=== PATIENT | female | born 1935 | race Caucasian/White ===

== ENCOUNTER → 2017-02-25 | Outpatient (CLI) | payer OTHER ==
[~2017-02-25] MED LIST: ASCA500 PO; ATV5 PO; BIOTCAP2 PO; CLR10 PO; CRG40 PO; GLUCTAB7 PO; MULT-845 PO; NAPR1TAB9 PO; RANI300T2 PO
--- NOTE | 2017-02-25 14:35 | MAMMOGRAPHY REPORT ---
BILATERAL DIGITAL SCREENING MAMMOGRAM WITH CAD: 02/25/2017 CLINICAL HISTORY: Routine screening. Patient has no complaints. TECHNIQUE: Current study was also evaluated with a Computer Aided Detection (CAD) system. Bilateral CC and MLO views were obtained. COMPARISON: Comparison is made to exams dated: 02/24/2016 mammogram, 02/18/2015 mammogram, 4 mammogram, 02/15/2013 mammogram, 02/15/2012 mammogram, and 01/22/2011 mammogram - [facility]. BREAST COMPOSITION: The tissue of both breasts is heterogeneously dense, which may obscure small mas ses. FINDINGS: No suspicious masses, calcifications, or areas of architectural distortion are noted in ei ther breast. There has been no significant interval change compared to prior exams. IMPRESSION: ACR BI-RADS CATEGORY 1: NEGATIVE There is no mammographic evidence of malignancy. A 1 year screening mammogram is recommended. The pa tient will receive written notification of the results. Approximately 10% of breast cancers are not detected with mammography. A negative mammographic report should not delay biopsy if a clinically suggestive mass is present. Adele Diaz M.D. /:02/25/2017 13:34:59 Ice Guard Tester: Daiana TYSON)(Misa), [facility] letter sent: Normal 1/2 BI-RADS Code: ACR BI-RADS Category 1: Negative
== END | disposition home or self-care (01) ==
LOC: C.MAMM 12:53
PROVIDERS: ATTEND Family Medicine
DX: Z12.31 Encounter for screening mammogram for malignant neoplasm of breast (principal)

== ENCOUNTER 2020-02-12 12:13 | Inpatient (IN) ==
[2020-02-12 13:19] LABS: Basophils # (auto) 0.03 K/uL (0-0.2); Basophils % (auto) 0.3 %; Eosinophils # (auto) 0.13 K/uL (0-0.5); Eosinophils % (auto) 1.2 %; Hematocrit (blood only) 46.1 % (37-47); Hemoglobin 15.3 g/dL (12.0-16.0); Immature Granulocytes # (auto) 0.02 K/uL (0.00-0.02); Immature Granulocytes % (auto) 0.2 %; Lymphocytes # (auto) 2.57 K/uL (1.2-3.4); Lymphocytes % (auto) 24.5 %; Mean Corpuscular Hemoglobin 30.3 pg (25-34); Mean Corpuscular Hgb Conc 33.2 g/dL (32-36); Mean Corpuscular Volume 91.3 fL (80-100); Mean Platelet Volume 10.6 fL (7.4-10.4); Monocytes # (auto) 0.76 K/uL (0.11-0.59); Monocytes % (auto) 7.3 %; Neutrophils # (auto) 6.96 K/uL (1.4-6.5); Neutrophils % (auto) 66.5 %; Platelet Count 311 K/uL (130-400); RDW Coefficient of Variation 14.5 % (11.5-14.5); RDW Standard Deviation 48.7 fL (36.4-46.3); Red Blood Count 5.05 M/uL (4.2-5.4); White Blood Count 10.47 K/uL (4.8-10.8)
[2020-02-12 13:31] LABS: Partial Thromboplastin Time 29.1 Seconds (21.0-31.0); Prothrombin Time 10.5 Seconds (9.0-12.0)
[2020-02-12 13:34] LABS: Alanine Aminotransferase 16 U/L (12-78); Albumin Level 3.7 gm/dl (3.4-5.0); Aspartate Aminotransferase 14 U/L (15-37); BUN Creatinine Ratio 22.4 (10-20); Blood Urea Nitrogen 19 mg/dl (7-18); Calcium 9.7 mg/dl (8.5-10.1); Carbon Dioxide 30 mmol/L (21-32); Chloride 103 mmol/L (98-107); Creatinine Clr Calc Pharmacy 53.8 ml/min; Est GFR (African American) 72.4; Est GFR (Non-African American) 62.5; Glucose 111 mg/dl (70-99); Lipase 178 U/L (73-393); Sodium 134 mmol/L (136-145)
--- NOTE | 2020-02-12 13:36 | Electrocardiogram Report ---
Test Reason : Blood Pressure : / mmHG Vent. Rate : 040 BPM Atrial Rate : 040 BPM P-R Int : 178 ms QRS Dur : 086 ms QT Int : 440 ms P-R-T Axes : 065 -41 049 degrees QTc Int : 358 ms Marked sinus bradycardia Left axis deviation Poor R wave progression, consider anterior ND vs. lead placement vs. LVH Abnormal ECG When compared with ECG of 27-MAR-2010 07:05, [place] interval has decreased Vent. rate has decreased BY 31 BPM QT has shortened Confirmed by Tae Shah ([id number]) on 02/12/2020 1:35:55 PM Referred By: ER Confirmed By:Tae Shah
[2020-02-12 13:42] LABS: Alkaline Phosphatase 83 U/L (45-117); Bilirubin,Total 0.5 mg/dl (0.2-1); Creatine Kinase 32 U/L (26-192); Creatine Kinase MB < 1.0 ng/ml (0.5-3.6); Globulin 3.7 gm/dl (2.5-4.0); Total Protein 7.4 gm/dl (6.4-8.2); Troponin I < 0.015 ng/ml (0-0.045)
--- NOTE | 2020-02-12 13:44 | XRay Report ---
XR chest 1V portable HISTORY: Atypical Chest Pain COMPARISON: None. FINDINGS: The lungs are clear. Cardiac silhouette is normal in size. No pleural effusions. No pneumot horax. IMPRESSION: No acute process. ACT 112: Negative or not required by law. Electronically signed by: Greg Rodas M.D. 02/12/2020 1:43 PM
[2020-02-12] MEDS ORDERED: SODIUM CHLORIDE 0.9% 1000ML 1,000 ML IV ONE (13:53)
--- NOTE | 2020-02-12 14:08 | History & Physical Report ---
Date of Service February 12, 2020 Assessment & Plan (1) Heart palpitations: Has a long history of palpitations and has been on nadolol for many years. At one point upon review of records, she was on digoxin as well. Has not followed with cardiology in several years. Presents today with palpitations and found to have bradycardia with heart rates in the 30s to 40s. (2) Sinus bradycardia: With bradycardia in the 30s and 40s here which is sinus -Admit to [facility] with telemetry -Cardiology consult, Dr. Benson, discussed with him over the phone -EKG reviewed showing sinus bradycardia, exam reveals S3 -Checking 2D echo -Holding nadolol, will await cardiology recs regarding dc of medication/lowering dose vs needs for pacemaker insertion if persists to have junctional rhythm -Denies lightheadedness, dizziness, weakness -- will ask PT/OT to see for use of cane at baseline. -check TSH -Checking Lyme Titre, anaplasmosis, Ehrlichia (3) Anxiety: Stable Continue home lorazepam as needed although would recommend against this in the elderly (4) DVT prophylaxis: DVT ppx: - teds, scds CODE: DNR/DNI Dispo: From home, likely to remain in the hospital x 1-2 days History of Present Illness Primary Care Provider: Eric Noe This is an 84-year-old female with PMHx of gastritis, heart palpitations, anxiety who presents from her PCP office asked after feeling like her heart is not beating correctly, and that this has been going on for 3- days, and figured she better go be evaluated. She describes this as a flutter, irregular rhythm where occasionally heartbeat kicks really hard and then goes back into a regular rhythm. Pt is found to have a heart rate in the 30s to 40s and EKG reveals profound sinus bradycardia. She currently is on beta blockade with nadolol 40 mg daily, and follows with cardiology seeing Dr. Benson, but has not seen him for at least 3 years. She was previously told by their office that she would be able to be followed by her PCP. Patient has been on nadolol for the last 4 years, placed on this for palpitations. Listed in her allergy list is metoprolol, and reports having swelling of the lips and systemic hives/itching when attempting to take this medication on 2 different trials previously. Pt denies any acute complaints of weakness, dizziness, lightheadedness, fatigue, or loss of consciousness. Her granddaughter is present with her at bedside. Patient lives at home by herself, uses a cane at baseline for ambulatory assistance. Her is currently a permanent resident in [facility]. Allergies Allergy/AdvReac Type Severity Reaction Status Date / Time capsaicin Allergy Intermediate HIVES Verified 02/12/20 13:54 diclofenac Allergy Intermediate HIVES Verified 02/12/20 13:54 Diclopak Allergy Intermediate HIVES Verified 02/11/16 00:31 Penicillins Allergy Unknown HIVES/RASH Verified 02/12/20 13:54 Amoxicillin CAPS Allergy Unknown Uncoded 02/12/20 13:54 Clinoril Allergy Unknown Uncoded 02/12/20 13:54 Erythromycin Derivatives Allergy Unknown Uncoded 02/12/20 13:54 metoprolol Allergy Unknown Uncoded 02/12/20 13:54 Voltaren Allergy Unknown Uncoded 02/12/20 13:54 Home Medications Medication Instructions Recorded Confirmed Type nadolol 40 mg tablet 40 mg PO QAM tab 12/20/18 02/12/20 History ascorbate calcium (vitamin C) 500 500 mg PO QAM 05/24/19 02/12/20 History mg tablet multivitamin 1 cap PO QAM 05/24/19 02/12/20 History estradiol 4 gm PV 2XWK 02/12/20 02/12/20 History lorazepam [Ativan] 0.5 mg PO DAILY PRN 02/12/20 02/12/20 History Past Med/Surg History Medical History Angioedema Anxiety Gastritis Heart palpitations Surgical History H/O joint surgery S/P tonsillectomy [place] teeth extracted Family History Father CHF (congestive heart failure) Mother Heart disease Sister Atrial fibrillation Social History Smoking Status: Never smoker Hx Alcohol Use: No Hx Substance Use: No Preferred Language: Swazi Communication Ability: Effective Director Medicaid Required: No Beliefs That Will Affect Care: None Current Living Situation: Alone Other Information That Helps Us Care for You: No Feels Safe at Home: Yes Safety Concerns: Feels Safe At This Time Assistive Devices: Cane and Glasses Review of Systems Review of Systems: Constitutional: No fever, sweats or chills Eyes: No diplopia, no worsening or blurred vision ENT: normal hearing, no trouble swallowing Respiratory: No cough, sputum, dyspnea at rest or on exertion Cardiovascular: As per HPI Abdomen: No pain, nausea, vomiting, diarrhea or constipation Musculoskeletal: No joint pain, calf pain, swelling Neurologic: No weakness, numbness/tingling, or balance problems Psychiatric: No anxiety or depression Skin: No rash or itch Physical Exam Physical Exam: General: awake, alert, no apparent distress Head: Normocephalic, atraumatic ENT: PERRL, EOMI, no pharyngeal exudate, mucous membranes moist Chest: Clear to auscultation, on room air, no adventitious breath sounds Cardiac: Sinus sid, + S3, no murmur, no JVD, normal peripheral pulses, good capillary refill Abdominal: NABS x 4 quadrants, soft, nondistended, nontender to palpation, no rebound or guarding Extremities: Normal inspection, no peripheral edema or erythema, calfs nontender to palpation Psych: Normal mood and affect Neuro: AAO x 3, strength intact bilaterally and rated 5/5, no motor deficits, speech is clear, no peripheral sensory deficits Results & Data Results & Data ([facility]) Vital Signs (Past 12 Hours) Vital Signs Temp Pulse Pulse Resp BP BP Pulse Ox 02/12/20 13:38 50 L 16 150/52 H 97 02/12/20 12:50 97 02/12/20 12:38 36.5 C 70 18 157/70 H 99 Laboratory Results 02/12/20 02/12/20 02/12/20 Range/Units 15:05 15:05 13:05 WBC (4.8-10.8) K/uL RBC (4.2-5.4) M/uL Hgb (12.0-16.0) g/dL Hct (37-47) % MCV (80-100) fL MCH (25-34) pg MCHC (32-36) g/dL RDW Std Deviation (36.4-46.3) fL RDW Coeff of Arleen (11.5-14.5) % Plt Count (130-400) K/uL MPV (7.4-10.4) fL Immature Gran % (Auto) % Neut % (Auto) % Lymph % (Auto) % [place] % (Auto) % Eos % (Auto) % Baso % (Auto) % Neut # (Auto) (1.4-6.5) K/uL Lymph # (Auto) (1.2-3.4) K/uL [place] # (Auto) (0.11-0.59) K/uL Eos # (Auto) (0-0.5) K/uL Baso # (Auto) (0-0.2) K/uL Immature Gran # (Auto) (0.00-0.02) K/uL PT (9.0-12.0) Seconds INR (0.9-1.1) APTT (21.0-31.0) Seconds PTT Ratio Sodium (136-145) mmol/L Potassium (3.5-5.1) mmol/L Chloride (98-107) mmol/L Carbon Dioxide (21-32) mmol/L Anion Gap (3-11) BUN (7-18) mg/dl Creatinine (0.6-1.2) mg/dl Est Cr Clr Drug Dosing ml/min Est GFR ( Amer) Est GFR (Non-Af Amer) BUN/Creatinine Ratio (10-20) Glucose (70-99) mg/dl Calcium (8.5-10.1) mg/dl Total Bilirubin (0.2-1) mg/dl AST (15-37) U/L ALT (12-78) U/L Alkaline Phosphatase (45-117) U/L Total Creatine Kinase (26-192) U/L CK-MB (CK-2) (0.5-3.6) ng/ml CK/CKMB % Calc Troponin I (0-0.045) ng/ml Total Protein (6.4-8.2) gm/dl Albumin (3.4-5.0) gm/dl Globulin (2.5-4.0) gm/dl Albumin/Globulin Ratio (0.9-2) Lipase (73-393) U/L TSH (0.300-4.500) uIu/ml A. phagocytophilum DNA Pending Lyme Disease IgG Ab (Negative) Lyme Disease IgM Ab (Negative) [facility] E. chaffeensis IgG Ab Pending E. chaffeensis IgM Ab Pending E. chaffeensis Interp Pending E. chaffeensis Comment Pending SARS-CoV-2, RNA, NAAT NEGATIVE (NEGATIVE) 02/12/20 02/12/20 02/12/20 Range/Units 13:05 13:05 13:05 WBC (4.8-10.8) K/uL RBC (4.2-5.4) M/uL Hgb (12.0-16.0) g/dL Hct (37-47) % MCV (80-100) fL MCH (25-34) pg MCHC (32-36) g/dL RDW Std Deviation (36.4-46.3) fL RDW Coeff of Arleen (11.5-14.5) % Plt Count (130-400) K/uL MPV (7.4-10.4) fL Immature Gran % (Auto) % Neut % (Auto) % Lymph % (Auto) % [place] % (Auto) % Eos % (Auto) % Baso % (Auto) % Neut # (Auto) (1.4-6.5) K/uL Lymph # (Auto) (1.2-3.4) K/uL [place] # (Auto) (0.11-0.59) K/uL Eos # (Auto) (0-0.5) K/uL Baso # (Auto) (0-0.2) K/uL Immature Gran # (Auto) (0.00-0.02) K/uL PT (9.0-12.0) Seconds INR (0.9-1.1) APTT (21.0-31.0) Seconds PTT Ratio Sodium 134 L (136-145) mmol/L Potassium 4.0 (3.5-5.1) mmol/L Chloride 103 (98-107) mmol/L Carbon Dioxide 30 (21-32) mmol/L Anion Gap 1.0 L (3-11) BUN 19 H (7-18) mg/dl Creatinine 0.86 (0.6-1.2) mg/dl Est Cr Clr Drug Dosing 53.8 ml/min Est GFR ( Amer) 72.4 Est GFR (Non-Af Amer) 62.5 BUN/Creatinine Ratio 22.4 H (10-20) Glucose 111 H (70-99) mg/dl Calcium 9.7 (8.5-10.1) mg/dl Total Bilirubin 0.5 (0.2-1) mg/dl AST 14 L (15-37) U/L ALT 16 (12-78) U/L Alkaline Phosphatase 83 (45-117) U/L Total Creatine Kinase 32 (26-192) U/L CK-MB (CK-2) < 1.0 (0.5-3.6) ng/ml CK/CKMB % Calc TNP Troponin I < 0.015 (0-0.045) ng/ml Total Protein 7.4 (6.4-8.2) gm/dl Albumin 3.7 (3.4-5.0) gm/dl Globulin 3.7 (2.5-4.0) gm/dl Albumin/Globulin Ratio 1.0 (0.9-2) Lipase 178 (73-393) U/L TSH 2.230 (0.300-4.500) uIu/ml A. phagocytophilum DNA Lyme Disease IgG Ab Negative (Negative) Lyme Disease IgM Ab Negative (Negative) COVID-19 Eval Order E. chaffeensis IgG Ab E. chaffeensis IgM Ab E. chaffeensis Interp E. chaffeensis Comment SARS-CoV-2, RNA, NAAT (NEGATIVE) 02/12/20 02/12/20 Range/Units 13:05 13:05 WBC 10.47 (4.8-10.8) K/uL RBC 5.05 (4.2-5.4) M/uL Hgb 15.3 (12.0-16.0) g/dL Hct 46.1 (37-47) % MCV 91.3 (80-100) fL MCH 30.3 (25-34) pg MCHC 33.2 (32-36) g/dL RDW Std Deviation 48.7 H (36.4-46.3) fL RDW Coeff of Arleen 14.5 (11.5-14.5) % Plt Count 311 (130-400) K/uL MPV 10.6 H (7.4-10.4) fL Immature Gran % (Auto) 0.2 % Neut % (Auto) 66.5 % Lymph % (Auto) 24.5 % [place] % (Auto) 7.3 % Eos % (Auto) 1.2 % Baso % (Auto) 0.3 % Neut # (Auto) 6.96 H (1.4-6.5) K/uL Lymph # (Auto) 2.57 (1.2-3.4) K/uL [place] # (Auto) 0.76 H (0.11-0.59) K/uL Eos # (Auto) 0.13 (0-0.5) K/uL Baso # (Auto) 0.03 (0-0.2) K/uL Immature Gran # (Auto) 0.02 (0.00-0.02) K/uL PT 10.5 (9.0-12.0) Seconds INR 1.0 (0.9-1.1) APTT 29.1 (21.0-31.0) Seconds PTT Ratio 1.0 Sodium (136-145) mmol/L Potassium (3.5-5.1) mmol/L Chloride (98-107) mmol/L Carbon Dioxide (21-32) mmol/L Anion Gap (3-11) BUN (7-18) mg/dl Creatinine (0.6-1.2) mg/dl Est Cr Clr Drug Dosing ml/min Est GFR ( Amer) Est GFR (Non-Af Amer) BUN/Creatinine Ratio (10-20) Glucose (70-99) mg/dl Calcium (8.5-10.1) mg/dl Total Bilirubin (0.2-1) mg/dl AST (15-37) U/L ALT (12-78) U/L Alkaline Phosphatase (45-117) U/L Total Creatine Kinase (26-192) U/L CK-MB (CK-2) (0.5-3.6) ng/ml CK/CKMB % Calc Troponin I (0-0.045) ng/ml Total Protein (6.4-8.2) gm/dl Albumin (3.4-5.0) gm/dl Globulin (2.5-4.0) gm/dl Albumin/Globulin Ratio (0.9-2) Lipase (73-393) U/L TSH (0.300-4.500) uIu/ml A. phagocytophilum DNA Lyme Disease IgG Ab (Negative) Lyme Disease IgM Ab (Negative) COVID-19 Eval Order E. chaffeensis IgG Ab E. chaffeensis IgM Ab E. chaffeensis Interp E. chaffeensis Comment SARS-CoV-2, RNA, NAAT (NEGATIVE) Diagnostic Findings XR chest 1V portable HISTORY: Atypical Chest Pain COMPARISON: None. FINDINGS: The lungs are clear. Cardiac silhouette is normal in size. No pleural effusions. No pneumothorax. IMPRESSION: No acute process. ACT 112: Negative or not required by law. ECG Additional Comments: 12-FEB-2020 12:46:24 [facility]-EDSTAT ROUTINE RETRIEVAL Marked sinus bradycardia Left axis deviation Poor R wave progression, consider anterior ME vs. lead placement vs. LVH Abnormal ECG When compared with ECG of 27-MAR-2010 07:05, [place] interval has decreased Vent. rate has decreased BY 31 BPM QT has shortened Confirmed by Tae Shah ([id number]) on 02/12/2020 1:35:55 PM 25mm/s 10mm/mV 150Hz 9.0.9 12SL 241 JENNY: 3 Referred by: ER Confirmed By: Tae Shah Vent. rate 40 BPM MT interval 178 ms QRS duration 86 ms QT/QTc 440/358 ms P-R-T axes 65 -41 49 Code Status & VTE Plan Code Status DNR/DNI-discussed with the patient Supervising Physician Co-Signing Physician Notes PA Supervision Note: I personally saw and examined the patient. I verified all keys points and agree with MUKESH Pappas with the following exceptions and/or additions: Patient presents with palpitations x3 days and was found to have sinus bradycardia with rates in the 30s and 40s. She has not had any syncope or presyncope. No chest pain or shortness of breath. No other concerning symptoms. She has been taking nadolol for many years. History and ROS reviewed as above Vitals reviewed Gen: AAOx3, NAD HEENT: Anicteric sclerae, EOMI CV: Regular rhythm, bradycardia, no mgr nl S1S2, heart rate 39 when I first saw her at rest but after sitting up to listen to her lungs, her heart rate appropriately went up to the 70s with minimal exertion. Pulm: CTAB no wcr Abd: +BS soft NT ND no masses or hernias Ext: No edema, 2+ DP pulses Skin: No rashes, warm/dry Neuro: Full strength throughout Laboratory values reviewed ECG reviewed and shows sinus bradycardia, no ischemic changes Chest x-ray negative 84-year-old female here with symptomatic sinus bradycardia with palpitations, but no syncope. Hold beta-thalia and observe on telemetry It is reassuring that her heart rate appropriately came up to the 70s with movement even in the bed when moving from lying to sitting position. Will need to ambulate her tomorrow to see what her heart rates do when she exercises. Cardiology consultation requested Check echocardiogram I do not think that she has any sort of tickborne illness that would cause this PG Care Time/CCT Total # of Minutes Spent Total Time Spent with Patient: Total time spent is greater than 50% in coordination of care (as documented) at patient's floor/unit and/or counseling patient: Coding Level of Care Code 04197 Initial Inpt Care Lvl 3 Diagnoses Heart palpitations R00.2 Sinus bradycardia R00.1 Anxiety F41.9 DVT prophylaxis Z29.9
--- NOTE | 2020-02-12 14:20 | Emergency Department Note ---
History of Present Illness General Chief complaint: Arrhythmia/Palpitations Stated complaint: arrhythmia Time Seen by Provider: 02/12/20 12:49 Source: patient, family (daughter), RN notes reviewed and old records reviewed Mode of arrival: ambulatory Limitations: no limitations History of Present Illness Provider complaint: palpitations Onset (ago): day(s) 3 Location: chest Radiation: non-radiation Associated symptoms: + denies other symptoms; no confusion, no chest pain, no headaches, no nausea/vomiting and no shortness of breath Treatments prior to arrival: none This is an 84-year-old female who presents emergency department complaining of palpitations which have been ongoing for the past 3 days. Patient reports she feels her heart is not beating right. She went to her primary care physician's office today where they found her heart rate to be in the 30s and she was sent to the emergency department. Patient denies any chest pain or weakness. She denies any fevers or chills or recent exposure to the virus. Home Medications Medication Instructions Recorded Confirmed Type nadolol 40 mg tablet 40 mg PO QAM tab 12/20/18 02/12/20 History ascorbate calcium (vitamin C) 500 500 mg PO QAM 05/24/19 02/12/20 History mg tablet multivitamin 1 cap PO QAM 05/24/19 02/12/20 History estradiol 4 gm PV 2XWK 02/12/20 02/12/20 History lorazepam [Ativan] 0.5 mg PO DAILY PRN 02/12/20 02/12/20 History Allergies Allergy/AdvReac Type Severity Reaction Status Date / Time capsaicin Allergy Intermediate HIVES Verified 02/12/20 13:54 diclofenac Allergy Intermediate HIVES Verified 02/12/20 13:54 Diclopak Allergy Intermediate HIVES Verified 02/11/16 00:31 Penicillins Allergy Unknown HIVES/RASH Verified 02/12/20 13:54 Amoxicillin CAPS Allergy Unknown Uncoded 02/12/20 13:54 Clinoril Allergy Unknown Uncoded 02/12/20 13:54 Erythromycin Derivatives Allergy Unknown Uncoded 02/12/20 13:54 metoprolol Allergy Unknown Uncoded 02/12/20 13:54 Voltaren Allergy Unknown Uncoded 02/12/20 13:54 Past Med/Surg History Surgical History H/O joint surgery S/P tonsillectomy [place] teeth extracted Family History (Updated 02/12/20 @ 15:02 by Jazmin Pappas PA-C) Father CHF (congestive heart failure) Mother Heart disease Sister Atrial fibrillation Social History Smoking Status: Never smoker Preferred Language: Nepali Feels Safe at Home: Yes Review of Systems A total of 10 systems reviewed and were otherwise negative Physical Exam Vital Signs Vital Signs - 24 hr 02/12/20 12:38 02/12/20 12:50 02/12/20 13:31 Temperature 36.5 C Temperature Source Oral Pulse Rate 70 63 Pulse Rate [Apical] Pulse Rate from SpO2 Sensor 61 Pulse Rhythm [Apical] Respiratory Rate 18 15 Respiratory Effort / Characteristics Non-Labored Spontaneous Respiratory Depth Normal Respiratory Pattern Regular Blood Pressure 157/70 H 150/52 H Blood Pressure [Left Arm] Blood Pressure Mean 99 64 Blood Pressure Mean [Left Arm] Pulse Oximetry 99 97 97 Oxygen Delivery Method Room Air Room Air Sepsis Recent Fever Within 48 Hours No Sepsis New/Unexplained Change in Mental Status No Sepsis Action Taken by Nursing No Action Required 02/12/20 13:38 02/12/20 14:00 02/12/20 14:01 Temperature Temperature Source Pulse Rate 38 L 62 Pulse Rate [Apical] 50 L Pulse Rate from SpO2 Sensor 38 L 58 L Pulse Rhythm [Apical] Regular Respiratory Rate 16 16 20 Respiratory Effort / Characteristics Respiratory Depth Normal Respiratory Pattern Blood Pressure 132/57 L Blood Pressure [Left Arm] 150/52 H Blood Pressure Mean 94 Blood Pressure Mean [Left Arm] 84 Pulse Oximetry 97 96 98 Oxygen Delivery Method Room Air Sepsis Recent Fever Within 48 Hours Sepsis New/Unexplained Change in Mental Status Sepsis Action Taken by Nursing 02/12/20 14:30 02/12/20 14:31 02/12/20 15:00 Temperature Temperature Source Pulse Rate 60 43 L 55 L Pulse Rate [Apical] Pulse Rate from SpO2 Sensor 53 L 41 L 57 L Pulse Rhythm [Apical] Respiratory Rate 16 18 14 Respiratory Effort / Characteristics Respiratory Depth Respiratory Pattern Blood Pressure 153/53 H 153/64 H Blood Pressure [Left Arm] Blood Pressure Mean 75 87 Blood Pressure Mean [Left Arm] Pulse Oximetry 98 100 97 Oxygen Delivery Method Sepsis Recent Fever Within 48 Hours Sepsis New/Unexplained Change in Mental Status Sepsis Action Taken by Nursing VITAL SIGNS - Vital signs and nursing notes were reviewed. GENERAL - 84-year-old female appearing stated age who is in no acute distress. Communicates well with provider and answers questions appropriately. SKIN - Without rashes. HEAD - NC/AT. EYES - PERRL with EOMI bilaterally. Sclera anicteric. Palpebral conjunctiva pink and moist with no injection noted. EARS - No deformities of external structures noted on gross examination bilaterally. No pain elicited with palpation of the tragus bilaterally. External auditory canals without discharge or otorrhea. Tympanic membranes pearly dela cruz without retraction or bulging. No fluid or purulent material visualized behind the TM. Handle of malleus, umbo, cone of light, pars tensa/flaccid all easily visualized. NOSE - Midline and without cyanosis. No epistaxis or purulent drainage noted. Septum midline without deviation or septal hematoma noted. MOUTH/OROPHARYNX - Without perioral cyanosis. Buccal mucosa pink and moist and without leukoplakia. Tongue midline with equal elevation of palate bilaterally. No tonsillar hypertrophy, erythema, or exudates noted. dentition noted. NECK - Neck with FROM. Supple to palpation. lymphadenopathy noted. No nuchal rigidity. LUNGS - Chest wall symmetric without accessory muscle use, intercostals retractions, or central cyanosis. Normal vesicular breath sounds CTA B/L. No wheezes, rales, or rhonchi appreciated. CARDIAC - RRR with S1/S2. No murmur, rubs, or gallops appreciated. ABDOMEN - Abdominal contour without pulsations or visible masses. BS normoactive all four quadrants. No tenderness, palpable masses, hepa tosplenomegaly, or ascites noted. EXTREMITIES - No clubbing or peripheral cyanosis. No pretibial edema present. +3/5 radial, posterior tibial, and dorsalis pedis pulses palpated throughout. +5/5 strength noted in UE/LE bilaterally. NEUROLOGIC - Cranial nerves II through XII grossly intact. Sensory intact to light touch throughout. Patellar reflexes +2/4. PSYCH - A&Ox3 and cooperates fully with examiner. Pt is very pleasant and interacts well with examiner. Course Administered Medications Discontinued Medications Sodium Chloride (Nss 1000ml) 1,000 mls @ 999 mls/hr IV .Q1H1M ONE Stop: 02/12/20 14:53 Last Infusion: 02/12/20 16:07 Dose: 0 mls/hr Documented by: [id number] Admin: 02/12/20 15:06 Dose: 999 mls/hr Documented by: [id number] Medical Decision Making Differential Diagnosis Cardiac ischemia, aortic dissection, pulmonary embolism, pneumothorax, pneumonia, pericarditis, myocarditis, esophageal rupture, GERD, cholecystitis, pancreatitis, musculoskeletal, as well as other pathologies. Medical Records Attestation: I reviewed the patient's medical records. Home Medications Current Medication List: was personally reviewed by me Laboratory Data Attestation: I reviewed the patient's lab results. Result diagrams: 02/12/20 13:05 02/12/20 13:05 Lab Results 02/12/20 02/12/20 02/12/20 Range/Units 13:05 13:05 13:05 WBC 10.47 (4.8-10.8) K/uL RBC 5.05 (4.2-5.4) M/uL Hgb 15.3 (12.0-16.0) g/dL Hct 46.1 (37-47) % MCV 91.3 (80-100) fL MCH 30.3 (25-34) pg MCHC 33.2 (32-36) g/dL RDW Std Deviation 48.7 H (36.4-46.3) fL RDW Coeff of Arleen 14.5 (11.5-14.5) % Plt Count 311 (130-400) K/uL MPV 10.6 H (7.4-10.4) fL Immature Gran % (Auto) 0.2 % Neut % (Auto) 66.5 % Lymph % (Auto) 24.5 % Cedar % (Auto) 7.3 % Eos % (Auto) 1.2 % Baso % (Auto) 0.3 % Neut # (Auto) 6.96 H (1.4-6.5) K/uL Lymph # (Auto) 2.57 (1.2-3.4) K/uL Cedar # (Auto) 0.76 H (0.11-0.59) K/uL Eos # (Auto) 0.13 (0-0.5) K/uL Baso # (Auto) 0.03 (0-0.2) K/uL Immature Gran # (Auto) 0.02 (0.00-0.02) K/uL PT 10.5 (9.0-12.0) Seconds INR 1.0 (0.9-1.1) APTT 29.1 (21.0-31.0) Seconds PTT Ratio 1.0 Sodium 134 L (136-145) mmol/L Potassium 4.0 (3.5-5.1) mmol/L Chloride 103 (98-107) mmol/L Carbon Dioxide 30 (21-32) mmol/L Anion Gap 1.0 L (3-11) BUN 19 H (7-18) mg/dl Creatinine 0.86 (0.6-1.2) mg/dl Est Cr Clr Drug Dosing 53.8 ml/min Est GFR ( Amer) 72.4 Est GFR (Non-Af Amer) 62.5 BUN/Creatinine Ratio 22.4 H (10-20) Glucose 111 H (70-99) mg/dl Calcium 9.7 (8.5-10.1) mg/dl Total Bilirubin 0.5 (0.2-1) mg/dl AST 14 L (15-37) U/L ALT 16 (12-78) U/L Alkaline Phosphatase 83 (45-117) U/L Total Creatine Kinase 32 (26-192) U/L CK-MB (CK-2) < 1.0 (0.5-3.6) ng/ml CK/CKMB % Calc TNP Troponin I < 0.015 (0-0.045) ng/ml Total Protein 7.4 (6.4-8.2) gm/dl Albumin 3.7 (3.4-5.0) gm/dl Globulin 3.7 (2.5-4.0) gm/dl Albumin/Globulin Ratio 1.0 (0.9-2) Lipase 178 (73-393) U/L TSH (0.300-4.500) uIu/ml Lyme Disease IgG Ab (Negative) Lyme Disease IgM Ab (Negative) 02/12/20 02/12/20 Range/Units 13:05 13:05 WBC (4.8-10.8) K/uL RBC (4.2-5.4) M/uL Hgb (12.0-16.0) g/dL Hct (37-47) % MCV (80-100) fL MCH (25-34) pg MCHC (32-36) g/dL RDW Std Deviation (36.4-46.3) fL RDW Coeff of Arleen (11.5-14.5) % Plt Count (130-400) K/uL MPV (7.4-10.4) fL Immature Gran % (Auto) % Neut % (Auto) % Lymph % (Auto) % Cedar % (Auto) % Eos % (Auto) % Baso % (Auto) % Neut # (Auto) (1.4-6.5) K/uL Lymph # (Auto) (1.2-3.4) K/uL Cedar # (Auto) (0.11-0.59) K/uL Eos # (Auto) (0-0.5) K/uL Baso # (Auto) (0-0.2) K/uL Immature Gran # (Auto) (0.00-0.02) K/uL PT (9.0-12.0) Seconds INR (0.9-1.1) APTT (21.0-31.0) Seconds PTT Ratio Sodium (136-145) mmol/L Potassium (3.5-5.1) mmol/L Chloride (98-107) mmol/L Carbon Dioxide (21-32) mmol/L Anion Gap (3-11) BUN (7-18) mg/dl Creatinine (0.6-1.2) mg/dl Est Cr Clr Drug Dosing ml/min Est GFR ( Amer) Est GFR (Non-Af Amer) BUN/Creatinine Ratio (10-20) Glucose (70-99) mg/dl Calcium (8.5-10.1) mg/dl Total Bilirubin (0.2-1) mg/dl AST (15-37) U/L ALT (12-78) U/L Alkaline Phosphatase (45-117) U/L Total Creatine Kinase (26-192) U/L CK-MB (CK-2) (0.5-3.6) ng/ml CK/CKMB % Calc Troponin I (0-0.045) ng/ml Total Protein (6.4-8.2) gm/dl Albumin (3.4-5.0) gm/dl Globulin (2.5-4.0) gm/dl Albumin/Globulin Ratio (0.9-2) Lipase (73-393) U/L TSH 2.230 (0.300-4.500) uIu/ml Lyme Disease IgG Ab Negative (Negative) Lyme Disease IgM Ab Negative (Negative) Imaging Data Radiologist's Impression: [place] [phone] XRay Report Patient: RADHA SPARKS Admit Date: 02/12/20 MR#: [id number] Address1: [address] [place] [address] Acct ID:[id number] Address2: Date: 1935 [facility] Zip: [place] [address] Age: 84 Location: ED Sex: F Room/Bed: Att Phy: Diagnosis: arrhythmia Susana Phy: Eric Noe MD Service Date: 02/12/20 Fam Phy: Interpreting Phy: Greg Rodas MD Admit Phy: Ordering Phy: Scot Cao MD cc: ~ XR chest 1V portable HISTORY: Atypical Chest Pain COMPARISON: None. FINDINGS: The lungs are clear. Cardiac silhouette is normal in size. No pleural effusions. No pneumothorax. IMPRESSION: No acute process. ACT 112: Negative or not required by law. Electronically signed by: Greg Rodas M.D. 02/12/2020 1:43 PM Dictated: 02/12/20 1341 Transcribed: 02/12/20 1341 ECG Data Attestation: I personally reviewed and interpreted this ECG as follows: Indication: + bradycardia Rate (beats per minute): 40 Rhythm: + sinus bradycardia ECG Intervals/blocks: + Normal QT-c (358) ECG [place]: + Left axis deviation ECG ST segments: no ST depression and no ST elevation Comparison ECG Date: from (03/27/2010) Change: the following changes noted (Vent rate has decreased by 31) MDM Narrative Patient was seen and evaluated as above in room A12. Review was performed of nursing notes and vital signs. I did review pertinent previous visits and patient history. After obtaining a thorough history and physical examination the above work up was performed. This is an 84-year-old female who presents emergency department over complaints of palpitations and feels like her heart is not beating right. On arrival to the emergency department the patient has no complaints she denies any shortness of breath or chest pain or weakness. I did discuss the case with the patient's pelts skinner Dr. Tolentino who asked that the patient be admitted to the hospitalist service. Patient is in agreement with the treatment plan. An order was placed for continuous cardiac monitoring. The monitor shows a rate of 41 with Sinus Eloy rhythm. I attest that I have personally reviewed the patient medication list. The patient was evaluated during the global COVID-19 pandemic, and that diagnosis was suspected/considered upon their initial presentation. Their eval uation, treatment and testing was consistent with current guidelines for patients who present with complaints or symptoms that may be related to COVID- 19. Impression & Plan Heart palpitations, Sinus bradycardia Discharge Plan Visit Data Chief Complaint: Arrhythmia/Palpitations Stated Complaint: arrhythmia ED Provider: Scot Cao Discharge Problem: Heart palpitations, Sinus bradycardia Patient Disposition: Admitted As Inpatient Discharge Instructions Interventions: ED Discharge Assessment Last Done: 02/12/20 17:58
[2020-02-12 15:24] LABS: Lyme Ab IgM w/WB Rflx Negative (Negative)
[2020-02-12 15:28] LABS: Lyme Ab IgG w/WB Rflx Negative (Negative)
[2020-02-12] MEDS ORDERED: ONDANSETRON INJ 2 MG/ML 2 ML VIAL IV PRN (17:28)
[2020-02-13 06:20] LABS: Hematocrit (blood only) 39.3 % (37-47); Hemoglobin 13.1 g/dL (12.0-16.0); Mean Corpuscular Hemoglobin 30.3 pg (25-34); Mean Corpuscular Hgb Conc 33.3 g/dL (32-36); Mean Corpuscular Volume 90.8 fL (80-100); Mean Platelet Volume 10.4 fL (7.4-10.4); Platelet Count 247 K/uL (130-400); RDW Coefficient of Variation 14.4 % (11.5-14.5); Red Blood Count 4.33 M/uL (4.2-5.4); White Blood Count 7.12 K/uL (4.8-10.8)
[2020-02-13 06:45] LABS: Albumin Level 2.8 gm/dl (3.4-5.0); BUN Creatinine Ratio 21.2 (10-20); Creatinine Clr Calc Pharmacy 55.3 ml/min; Est GFR (African American) 75.6; Est GFR (Non-African American) 65.2; Magnesium 2.1 mg/dl (1.8-2.4); Potassium 3.8 mmol/L (3.5-5.1)
[2020-02-13 06:52] LABS: Bilirubin,Total 0.7 mg/dl (0.2-1); Globulin 2.9 gm/dl (2.5-4.0); Phosphorus 3.2 mg/dl (2.5-4.9); Total Protein 5.7 gm/dl (6.4-8.2)
[2020-02-13 07:38] LABS: Estimated Average Glucose 100 mg/dl; Hemoglobin A1C 5.1 % (4.5-5.6)
[2020-02-13] MEDS: MULTIVITAMIN TAB PO SCH (07:52)
[2020-02-13] MEDS: ASCORBIC ACID 500 MG TAB PO SCH (07:52)
--- NOTE | 2020-02-13 08:57 | Cardiology Consultation ---
Date of Consultation Note from the emergency room suggested that she had lightheadedness and weakness and slow heart rates in the 30s in the office as an outpatient. She notes that her palpitations have been worse over the last month. She describes 2 different kinds of palpitations one is a flip-flop which sounds like her PVCs the other are a more extended palpitation. In reviewing the monitor here looks like she is having bursts of PAT associated with frequent PACs as well. She denies any chest pain chest pressure chest heaviness she has any presyncope or syncope. She denies any falls. She lives all on 1 floor walks with a cane. Her granddaughter is doing the grocery shopping for her she drives to the mailbox. She notes overall she has not been doing as much activity. She denies any lower extremity edema symptoms or claudication she denies any orthopnea or heart failure symptoms. The rest of a complete her systems otherwise negative February 13, 2020 History of Present Illness Attending Physician: Tico Hernandez MD Allergies Allergy/AdvReac Type Severity Reaction Status Date / Time capsaicin Allergy Intermediate HIVES Verified 02/12/20 13:54 diclofenac Allergy Intermediate HIVES Verified 02/12/20 13:54 Diclopak Allergy Intermediate HIVES Verified 02/11/16 00:31 Penicillins Allergy Unknown HIVES/RASH Verified 02/12/20 13:54 Amoxicillin CAPS Allergy Unknown Uncoded 02/12/20 13:54 Clinoril Allergy Unknown Uncoded 02/12/20 13:54 Erythromycin Derivatives Allergy Unknown Uncoded 02/12/20 13:54 metoprolol Allergy Unknown Uncoded 02/12/20 13:54 Voltaren Allergy Unknown Uncoded 02/12/20 13:54 Home Medications Medication Instructions Recorded Confirmed Type nadolol 40 mg tablet 40 mg PO QAM tab 12/20/18 02/12/20 History ascorbate calcium (vitamin C) 500 500 mg PO QAM 05/24/19 02/12/20 History mg tablet multivitamin 1 cap PO QAM 05/24/19 02/12/20 History estradiol 4 gm PV 2XWK 02/12/20 02/12/20 History lorazepam [Ativan] 0.5 mg PO DAILY PRN 02/12/20 02/12/20 History Patient History Medical History Angioedema Anxiety Gastritis Heart palpitations Surgical History H/O joint surgery S/P tonsillectomy [place] teeth extracted Family History Father CHF (congestive heart failure) Mother Heart disease Sister Atrial fibrillation Social History Smoking Status: Never smoker Hx Alcohol Use: No Hx Substance Use: No Preferred Language: Yoruba Communication Ability: Effective Miller Helper Required: No Beliefs That Will Affect Care: None Current Living Situation: Alone Other Information That Helps Us Care for You: No Feels Safe at Home: Yes Safety Concerns: Feels Safe At This Time Assistive Devices: Cane and Glasses Results & Data ([facility]) Vital Signs (Past 12 Hours) Vital Signs Temp Pulse Pulse Resp BP Pulse Ox 02/13/20 08:00 36.7 C 61 18 153/79 H 94 02/13/20 07:26 69 02/13/20 04:00 36.6 C 55 L 18 103/61 98 02/13/20 00:01 61 02/12/20 23:44 36.8 C 64 18 142/66 H 98 she is awake alert oriented x3 she is in no acute distress she looks younger than her stated age HEENT: 2+ carotid upstrokes. No evidence of carotid bruits sclerae anicteric hearing is normal Lungs: Clear auscultation bilaterally no rales rhonchi or wheezing Heart: Regular rate and rhythm she has frequent ectopy and had symptomatic PVCs when listening to her, there were no appreciable murmurs or rubs Abdomen: Soft nontender distended positive bowel sounds Extremities: No clubbing cyanosis or edema Psychiatric affect appeared appropriate Neurologic she is awake alert and oriented x3 and moves all extremities and answers questions appropriately Impressions: 1. Marked sinus bradycardia and possible junctional rhythm secondary to nadolol 2. 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 Hypertension 4. GERD 5. Anxiety 6. Intolerant of metoprolol due to angioedema and hives I did review her monitor this morning. She does have frequent PVCs she also has frequent PACs and short runs of PAT. She likely needs AV antonio blockers long- term to suppress her arrhythmias. Unfortunately with even low doses of nadolol she is having symptomatic bradycardia and her frequency of her ectopy seems to have increased. If we do not put a pacemaker in now she likely will declare herself in the near future with ongoing bradycardia or worsening palpitations that would require the need for AV antonio blockers. Her carotid upstroke is brisk suggesting her LV function is preserved. Her TSH is normal. Her Lyme titers are negative. I discussed with her the risks and benefits of pacemaker implantation she is agreeable to proceed if the EP service feels the same. We also discussed limitations afterwards which should not impact her as well as the need for chronic monitoring of her device. I will discuss her case with Dr. Kolb. She did have breakfast this morning. We can arrange for either her pacemaker this afternoon or tomorrow morning depending on Dr. Kolb schedule.
[2020-02-13] MEDS: LORazepam 0.5 MG TAB PO PRN (10:57)
--- NOTE | 2020-02-13 13:01 | XCELERA ---
[id number]
--- NOTE | 2020-02-13 15:40 | Hospitalist Progress Note ---
Date of Service February 13, 2020 Assessment & Plan (1) Heart palpitations: Has a long history of palpitations and has been on nadolol for many years. At one point upon review of records, she was on digoxin as well. Has not followed with cardiology in several years. Presents today with palpitations and found to have bradycardia with heart rates in the 30s to 40s. - Due to palpitations, she needs to be on beta-thalia per cardiology. But due to bradycardia, she may need a pacemaker. Discussed with Dr. Benson who will consult Dr. Kolb. (2) Sinus bradycardia: With bradycardia in the 30s and 40s here which is sinus -Ad[facility] to [facility] with telemetry -Cardiology consult, Dr. Benson, discussed with him over the phone -EKG reviewed showing sinus bradycardia, exam reveals S3 -Checking 2D echo -Holding nadolol, will await cardiology recs regarding dc of medication/lowering dose vs needs for pacemaker insertion if persists to have junctional rhythm -Denies lightheadedness, dizziness, weakness -- will ask PT/OT to see for use of cane at baseline. -check TSH -Checking Lyme Titre, anaplasmosis, Ehrlichia -> Lyme negative. (3) Anxiety: Stable Continue home lorazepam as needed although would recommend against this in the elderly (4) DVT prophylaxis: DVT ppx: - teds, scds CODE: DNR/DNI Dispo: From home, likely to remain in the hospital x 1-2 days Admission and Anticipated Discharge Date Admission Date: February 12, 2020 Subjective No major issues today. Reports no fevers/chills, chest pain, shortness of breath, abdominal pain, nausea, or vomiting. No further lightheadedness or dizziness. Physical Exam Constitutional: WD/WN, vitals as above Eyes: EOM intact bilaterally; no conjunctival abnormality ENMT: external ear and nose normal, oropharynx normal Neck: trachea midline, no thyromegaly normal visual inspection Respiratory: normal respiratory effort, lungs clear to auscultation no respiratory distress Cardiovascular: RRR, no murmur, no edema Gastrointestinal (Abdomen): Inspection/Auscultation: abdomen normal to inspection; abdomen not distended Musculoskeletal: no cyanosis or clubbing, extremities motor strength 5/5 Skin: no rashes, warm and dry Neurologic: moves all extremities and awake Psychiatric: Orientation: alert, oriented to person and cooperative Results & Data Results & Data ([facility]) Vital Signs (Past 12 Hours) Vital Signs Temp Pulse Pulse Resp BP Pulse Ox 02/13/20 15:30 71 02/13/20 11:53 36.8 C 62 18 132/74 94 02/13/20 08:00 36.7 C 61 18 153/79 H 94 02/13/20 07:26 69 02/13/20 04:00 36.6 C 55 L 18 103/61 98 PG Care Time/CCT Total # of Minutes Spent Total Time Spent with Patient: Total time spent is greater than 50% in coordination of care (as documented) at patient's floor/unit and/or counseling patient: Coding Level of Care Code 51847 Subseq Hosp Care Lvl 2 Diagnoses Heart palpitations R00.2 Sinus bradycardia R00.1 Anxiety F41.9 DVT prophylaxis Z29.9
[2020-02-13] MEDS: ACETAMINOPHEN 325 MG TAB PO PRN (16:58)
[2020-02-14 06:18] LABS: Hematocrit (blood only) 39.6 % (37-47); Hemoglobin 13.2 g/dL (12.0-16.0); Mean Corpuscular Hemoglobin 30.2 pg (25-34); Mean Corpuscular Hgb Conc 33.3 g/dL (32-36); Mean Corpuscular Volume 90.6 fL (80-100); Mean Platelet Volume 10.6 fL (7.4-10.4); Platelet Count 247 K/uL (130-400); RDW Coefficient of Variation 14.5 % (11.5-14.5); RDW Standard Deviation 47.6 fL (36.4-46.3); Red Blood Count 4.37 M/uL (4.2-5.4); White Blood Count 7.08 K/uL (4.8-10.8)
[2020-02-14] MEDS ORDERED: CLINDAMYCIN PHOS 300 MG/2 ML VIAL ONE (06:32)
[2020-02-14 06:41] LABS: Albumin Level 2.9 gm/dl (3.4-5.0); BUN Creatinine Ratio 25.4 (10-20); Creatinine Clr Calc Pharmacy 54.9 ml/min; Est GFR (African American) 74.5; Est GFR (Non-African American) 64.3; Potassium 4.2 mmol/L (3.5-5.1)
[2020-02-14 06:44] LABS: Bilirubin,Total 0.5 mg/dl (0.2-1); Globulin 2.9 gm/dl (2.5-4.0); Total Protein 5.9 gm/dl (6.4-8.2)
[2020-02-14] MEDS ORDERED: LIDOCAINE HCL 1% 20 ML VIAL ONE (06:49)
[2020-02-14] MEDS ORDERED: BUPIVACAINE 0.25% 30 ML VIAL ONE (06:49)
[2020-02-14] MEDS ORDERED: BACITRACIN INJ 50,000 UNIT VIAL ONE (06:50)
[2020-02-14] MEDS ORDERED: fentaNYL citrate 100 MCG/2 ML VIAL ONE (06:51)
[2020-02-14] MEDS ORDERED: MIDAZOLAM HCL 5 MG/ML 1 ML VIAL ONE (06:51)
--- NOTE | 2020-02-14 07:27 | Pre Anesthesia Assessment ---
Date of Service February 14, 2020 Pre Sedation Assessment Vital Signs Temp Pulse Pulse Pulse Resp BP Pulse Ox 02/14/20 07:21 36.8 C 78 18 146/72 H 93 02/14/20 07:15 66 20 150/71 H 95 02/14/20 07:07 70 02/14/20 03:36 36.9 C 69 18 106/65 98 02/14/20 01:00 64 02/13/20 23:30 36.8 C 63 20 105/57 L 97 02/13/20 19:43 36.9 C 52 L 18 117/70 90 02/13/20 15:45 36.7 C 55 L 18 116/62 91 02/13/20 15:30 71 02/13/20 11:53 36.8 C 62 18 132/74 94 02/13/20 08:00 36.7 C 61 18 153/79 H 94 Cardiovascular + regular rate Respiratory + respiratory effort normal Pre-Sedation Airway Assessment Smoking Status: Never smoker Hx Sleep Apnea: No Hx Difficult Intubation: No Short, Thick Neck: No Thyromental Distance: > or= 3.5 Finger Breadths Oral Cavity: + Dentures Mallampati Class: II ASA: ASA3 NPO Status Date of Last Intake of Fluids: 02/13/20 Time of Last Intake of Fluids: 20:00 Date of Last Intake of Solid Food: 02/13/20 Time of Last Intake of Solid Foods: 20:00 Procedure Planning Contraindications for Sedation: none Current Medications Reviewed: Yes Notes The planned sedation has been discussed with the patient. Informed Consent was obtained. I have identified the patient, determined the appropriateness of sedation and have assessed the patient immediately prior to the procedure. All medicine(s) and interventions are by my order.
[2020-02-14] MEDS ORDERED: oxyCODONE HCL IR 5 MG TAB (IMMEDIATE RELEASE) PO PRN (08:17)
--- NOTE | 2020-02-14 08:17 | Post Anesthesia Assessment ---
Date of Service February 14, 2020 Post Sedation Assessment Vital Signs Temp Pulse Pulse Pulse Resp BP Pulse Ox 02/14/20 07:21 36.8 C 78 18 146/72 H 93 02/14/20 07:15 66 20 150/71 H 95 02/14/20 07:07 70 02/14/20 03:36 36.9 C 69 18 106/65 98 02/14/20 01:00 64 02/13/20 23:30 36.8 C 63 20 105/57 L 97 02/13/20 19:43 36.9 C 52 L 18 117/70 90 02/13/20 15:45 36.7 C 55 L 18 116/62 91 02/13/20 15:30 71 02/13/20 11:53 36.8 C 62 18 132/74 94 Recovery Score Activity: Moves 4 extremities Respiration: Deep Breath/Cough Circulation: +/-20% PreAnes Value Consciousness: Arouseable (by name) Oxygen Saturation: > 92% On Room Air Discharge Sedation Level of Care: Fast Track Phase II Post Sedation Plan On clinical assessment, the patient appears to have tolerated the sedation without complications. Patient is recovering as anticipated. Patient will continue to be monitored by nursing and may be discharged when sedation discharge criteria are met per below protocol. Upon Completions of procedure up to 15 minutes continue every 5 minute vital signs and the P.A.R. score; then discharge to a Phase I or Fast Track to Phase II per the following guidelines: * Discharge Patient to appropriate Phase II area if PAR is 8 or greater or return to pre- procedure baseline. The post - procedure orders will be as directed. * If PAR score is less than 8 or not return to pre-procedure baseline then patient will follow Phase I monitoring till PAR is reached for Phase II. The Phase I may be done in procedure room or may call to secure a Phase I area. * If naloxone or flumazenil are used for reversal, hold in Phase I for continued monitoring from when last reversal dose was given for a minimum of 60 minutes or longer pending the nurse and/or physician discretion of patient condition before discharge to Phase II. Please call the Sedation Physician to re-evaluate and complete post-note for discharge to Phase II area. Do NOT discharge from procedure sedation or Phase 1 until post- sedation evaluation note is complete by procedure /sedation MD Sedation Discharge Instructions to be given to the patient at discharge to home.
--- NOTE | 2020-02-14 08:17 | Electrophysiology Report ---
Date of Service February 14, 2020 Electrophysiology Procedure Electrophysiology Procedure Report Procedure performed: Implantation of dual-chamber permanent pacemaker Staff director of kids: Titus Kolb MD Indication: The patient is an 84-year-old woman with a history of symptomatic palpitations. She has been on beta-blockade for symptom relief. However, she recently presented with symptomatic bradycardia. 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 She requires a pacemaker for necessary medical therapy. Its been placed for symptomatic nonreversible sinus node dysfunction. Dual-chamber device was selected as she is currently in sinus rhythm and wished to maintain AV synchrony. Procedure in detail: The patient was informed of the risks benefits and alternatives to the intended procedure and she wished to proceed. She was taken to the electrophysiology suite in a fasting state. A preoperative antibiotic had been administered. The patient was monitored electrocardiographically throughout today's procedure and conscious sedation was administered per protocol. The left upper pectoral area is prepped and draped in usual sterile fashion. This area was anesthetized using subcutaneous administration of a xylocaine solution. An incision was made at this site and carried down to the prepectoralis fascia using sharp dissection. Electrocautery was also employed for dissection as well as for hemostasis. A device pocket was fashioned tissues above the pectoralis muscle. Subsequent to this maneuver the left axillary vein was accessed using modified Seldinger technique. Sheaths were placed over guidewires at this site and used to facilitate passage of the pacing leads to the respective chambers under fluoroscopic guidance. This included right atrial and right ventricular leads. Adequate sensing and threshold parameters were obtained prior to Active fixation of the leads to the endocardial surface. The proximal portion leads were then sutured the prepectoral fascia using nonabsorbable suture. The device pocket was irrigated with antibiotic solution. The leads were then attached to the device. The device and leads were then placed in the pocket and pocket was closed in 3 layers of absorbable suture. Steri-Strips and sterile dressing were applied. The device was tested noninvasively prior to conclusion the procedure. The patient tolerated procedure well there no immediate complications. Equipment used: New pulse generator: [employer] Model number: [id number] serial number [id number] Right atrial lead: [employer]. Model number: [id number] serial number [id number] Right ventricular lead: [employer]. Model number: 5076 serial number [id number] Measured data: Right atrial lead: P waves measured 2.1 mV. Pacing threshold 1.2 V at 0.4 ms with a pacing impedance of 760 ohms Right ventricular lead: R waves measured 8.5 mV pacing threshold was 0.5 V at 0.4 ms with a pacing impedance of 798 ohms Impression: Successful implantation of dual-chamber permanent pacemaker [facility] Electrophysiology codes Pacing Procedure 1: Pacin Insert/Replace Pacer A & V PG Moderate Sedation Codes Moderate Sedation Codes Procedure 1: Sedation/Anesthesia: 73154 Mod Sedation by the same physician;Init15 Min Child Age 5 & Up Procedure 2: Sedation/Anesthesia: 98330 Mod Sedation by the same physician; Ea [id number] Minutes
[2020-02-14] MEDS: ASCORBIC ACID 500 MG TAB PO SCH (09:07)
[2020-02-14] MEDS: MULTIVITAMIN TAB PO SCH (09:07)
[2020-02-14] MEDS: nadoloL 40 MG TAB PO SCH (09:16)
[2020-02-14] MEDS: ACETAMINOPHEN 325 MG TAB PO PRN ×3 (09:58→19:42)
[2020-02-14] MEDS: ceFAZolin 1000MG 1,000 MG/7.5 ML SYR IV SCH (15:41)
--- NOTE | 2020-02-14 22:57 | Hospitalist Progress Note ---
Date of Service February 14, 2020 Assessment & Plan (1) Heart palpitations: Has a long history of palpitations and has been on nadolol for many years. At one point upon review of records, she was on digoxin as well. Has not followed with cardiology in several years. Presents today with palpitations and found to have bradycardia with heart rates in the 30s to 40s. - Due to palpitations, she needs to be on beta-thalia per cardiology. But due to bradycardia, she may need a pacemaker. SP pacemaker. (2) Sinus bradycardia: With bradycardia in the 30s and 40s here which is sinus -Admit to [facility] with telemetry -Cardiology consult, Dr. Benson, discussed with him over the phone -EKG reviewed showing sinus bradycardia, exam reveals S3 -Checking 2D echo -Holding nadolol, will await cardiology recs regarding dc of medication/lowering dose vs needs for pacemaker insertion if persists to have junctional rhythm -Denies lightheadedness, dizziness, weakness -- will ask PT/OT to see for use of cane at baseline. -check TSH -Checking Lyme Titre, anaplasmosis, Ehrlichia -> Lyme negative. (3) Anxiety: Stable Continue home lorazepam as needed although would recommend against this in the elderly (4) DVT prophylaxis: DVT ppx: - teds, scds CODE: DNR/DNI Admission and Anticipated Discharge Date Admission Date: February 12, 2020 Subjective 84 yo female reports feeling well. She has no new complaints at this time. Review of Systems Review of Systems: Constitutional: No fever, sweats or chills Eyes: No diplopia, no worsening or blurred vision ENT: normal hearing, no trouble swallowing Respiratory: No cough, sputum, dyspnea at rest or on exertion Cardiovascular: As per HPI Abdomen: No pain, nausea, vomiting, diarrhea or constipation Musculoskeletal: No joint pain, calf pain, swelling Neurologic: No weakness, numbness/tingling, or balance problems Psychiatric: No anxiety or depression Skin: No rash or itch Physical Exam Physical Exam: Constitutional: WD/WN, vitals as above Eyes: EOM intact bilaterally; no conjunctival abnormality ENMT: external ear and nose normal, oropharynx normal Neck: trachea midline, no thyromegaly normal visual inspection Respiratory: normal respiratory effort, lungs clear to auscultation no respiratory distress Cardiovascular: RRR, no murmur, no edema Gastrointestinal (Abdomen): Inspection/Auscultation: abdomen normal to inspection; abdomen not distended Musculoskeletal: no cyanosis or clubbing, extremities motor strength 5/5 Skin: no rashes, warm and dry Neurologic: moves all extremities and awake Psychiatric: Orientation: alert, oriented to person and cooperative Results & Data Results & Data ([facility]) Vital Signs (Past 12 Hours) Vital Signs Temp Pulse Resp BP Pulse Ox 02/14/20 19:48 37 C 106 H 18 131/87 96 02/14/20 15:21 36.7 C 70 18 98/61 L 96 02/14/20 11:15 36.5 C 70 16 108/70 96 02/14/20 11:00 128/59 L PG Care Time/CCT Total # of Minutes Spent Total Time Spent with Patient: Total time spent is greater than 50% in coordination of care (as documented) at patient's floor/unit and/or counseling patient: Coding Level of Care Code 72279 Subseq Hosp Care Lvl 2 Diagnoses Heart palpitations R00.2 Sinus bradycardia R00.1 Anxiety F41.9 DVT prophylaxis Z29.9
[2020-02-15] MEDS: ceFAZolin 1000MG 1,000 MG/7.5 ML SYR IV SCH ×2 (00:22→07:46)
[2020-02-15 06:01] LABS: Hematocrit (blood only) 43.1 % (37-47); Hemoglobin 14.2 g/dL (12.0-16.0); Mean Corpuscular Hgb Conc 32.9 g/dL (32-36); Mean Corpuscular Volume 91.1 fL (80-100); Mean Platelet Volume 10.3 fL (7.4-10.4); Platelet Count 242 K/uL (130-400); RDW Coefficient of Variation 14.6 % (11.5-14.5); Red Blood Count 4.73 M/uL (4.2-5.4); White Blood Count 8.77 K/uL (4.8-10.8)
[2020-02-15 06:27] LABS: Albumin Level 3.1 gm/dl (3.4-5.0); BUN Creatinine Ratio 22.3 (10-20); Calcium 8.7 mg/dl (8.5-10.1); Creatinine Clr Calc Pharmacy 57.9 ml/min; Est GFR (Non-African American) 68.2; Potassium 3.8 mmol/L (3.5-5.1)
[2020-02-15 06:29] LABS: Albumin Globulin Ratio 0.9 (0.9-2); Bilirubin,Total 0.7 mg/dl (0.2-1); Globulin 3.4 gm/dl (2.5-4.0); Total Protein 6.5 gm/dl (6.4-8.2)
--- NOTE | 2020-02-15 07:03 | XRay Report ---
XR chest 2V PA/lateral HISTORY: 84 years-old Female EXACT TIME ORDERED Evaluate for pneumothorax and l status post placemen t of a left subclavian pacer COMPARISON: Chest radiograph 02/12/2020 TECHNIQUE: PA and lateral views of the chest FINDINGS: Limited lateral view secondary to upper extremity positioning. Cardiomediastinal and hilar silhouette s are within normal limits. Dual-lead left subclavian pacer has been placed. The visualized leads alise ear intact. No postprocedural pneumothorax. No pleural effusion, airspace consolidation or overt pulm onary edema. Bones of the chest appear grossly intact. IMPRESSION: Status post placement of a left subclavian pacer. No postprocedural pneumothorax. ACT 112: Negative or not required by law. The above report was generated using voice recognition software. It may contain grammatical, syntax o r spelling errors. Electronically signed by: Kendell Sanchez M.D. 02/15/2020 7:02 AM
[2020-02-15] MEDS: ASCORBIC ACID 500 MG TAB PO SCH (07:46)
[2020-02-15] MEDS: MULTIVITAMIN TAB PO SCH (07:46)
[2020-02-15] MEDS: nadoloL 40 MG TAB PO SCH (07:46)
--- NOTE | 2020-02-15 08:16 | Cardiology Progress Note ---
Date of Service She feels well this morning. Denies any fevers chills or sweats. She has any shortness of breath or chest pain. She she did have some palpitations this morn ing but there was nothing noted on the monitor.She had some mild lightheadedness walking to the bathroom the first time she got up out of bed.Otherwise she is feeling well she denies any presyncope or syncope or or dizziness that she had before she came in the hospital February 15, 2020 Assessment & Plan Admission and Anticipated Discharge Date Admission Date: February 12, 2020 Subjective she is awake alert oriented x3 she is in no acute distress she looks younger than her stated age HEENT: 2+ carotid upstrokes. No evidence of carotid bruits sclerae anicteric hearing is normal Lungs: Clear auscultation bilaterally no rales rhonchi or wheezing Heart: Regular rate and rhythm she has frequent ectopy and had symptomatic PVCs when listening to her, there were no appreciable murmurs or rubs Abdomen: Soft nontender distended positive bowel sounds Extremities: No clubbing cyanosis or edema Psychiatric affect appeared appropriate Neurologic she is awake alert and oriented x3 and moves all extremities and answers questions appropriately Impressions: 1. Marked sinus bradycardia and possible junctional rhythm secondary to nadolol 2. 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 Hypertension 4. GERD 5. Anxiety 6. Intolerant of metoprolol due to angioedema and hives Status post dual-chamber [employer] pacemaker. Her chest x-ray is normal. Her device interrogation is normal. She can be discharged home. She should be discharged on her home dose of nadolol. The device will allow us to make sure she is not having any episodes of atrial fibrillation that would require additional treatment including anticoagulation and potentially higher doses of nadolol and/or antiarrhythmic therapy. We will arrange for her to be seen in her she is device clinic and arrange for her follow-up. She will need to see Dr. Kolb in the office for her incision check. I did discuss post pacemaker implantation restrictions especially involving her left arm with her in detail. Results & Data ([facility]) Vital Signs (Past 12 Hours) Vital Signs Temp Pulse Pulse Resp BP Pulse Ox 02/15/20 07:43 36.9 C 66 18 113/67 94 02/15/20 04:03 36.7 C 74 17 112/67 94 02/14/20 23:13 36.6 C 64 18 129/79 95
[2020-02-15] MEDS: LORazepam 0.5 MG TAB PO PRN (08:59)
--- NOTE | 2020-02-15 11:22 | Cardiology Progress Note ---
Date of Service February 15, 2020 Assessment & Plan (1) Pacemaker: patient appears to have undergone placement of a dual-chamber permanent pacemaker without evident complication. She will be safe for discharge today. He should refrain from lifting left arm above the shoulder behind the neck for 6 weeks. She should keep this Steri-Strips intact and the dry until follow-up in clinic next week. Admission and Anticipated Discharge Date Admission Date: February 12, 2020 Subjective This morning the patient clinically feeling well. She has minimal discomfort at the device implant site refractory. Some palpitations this morning. Physical Exam Physical Exam: Evaluation of the device implant site reveals a very small ecchymoses. No drainage from the. No erythema. No hematoma. Results & Data ([facility]) Vital Signs (Past 12 Hours) Vital Signs Temp Pulse Resp BP Pulse Ox 02/15/20 07:43 36.9 C 66 18 113/67 94 02/15/20 04:03 36.7 C 74 17 112/67 94 Diagnostic Findings Chest x-ray obtained this morning demonstrated adequate lead placement without evidence of pneumothorax device interrogation revealed adequate function both atrial ventricular leads.
[2020-02-19 16:05] LABS: Ehrlichia chaff IgG Ab <1:64 (<1:64); Ehrlichia chaff IgM Ab <1:20 (<1:20)
--- NOTE | 2020-02-25 16:40 | Discharge Summary ---
Date of Service February 15, 2020 Admission HPI Per Admitting Provider This is an 84-year-old female with PMHx of gastritis, heart palpitations, anxiety who presents from her PCP office asked after feeling like her heart is not beating correctly, and that this has been going on for 3- days, and figured she better go be evaluated. She describes this as a flutter, irregular rhythm where occasionally heartbeat kicks really hard and then goes back into a regular rhythm. Pt is found to have a heart rate in the 30s to 40s and EKG reveals profound sinus bradycardia. She currently is on beta blockade with nadolol 40 mg daily, and follows with cardiology seeing Dr. Benson, but has not seen him for at least 3 years. She was previously told by their office that she would be able to be followed by her PCP. Patient has been on nadolol for the last 4 years, placed on this for palpitations. Listed in her allergy list is metoprolol, and reports having swelling of the lips and systemic hives/itching when attempting to take this medication on 2 different trials previously. Pt denies any acute complaints of weakness, dizziness, lightheadedness, fatigue, or loss of consciousness. Her granddaughter is present with her at bedside. Patient lives at home by herself, uses a cane at baseline for ambulatory assistance. Her is currently a permanent resident in [facility]. Principal Diagnosis palpitations Discharge Exam Constitutional: WD/WN, vitals as above Eyes: EOM intact bilaterally; no conjunctival abnormality ENMT: external ear and nose normal, oropharynx normal Neck: trachea midline, no thyromegaly normal visual inspection Respiratory: normal respiratory effort, lungs clear to auscultation no respiratory distress Cardiovascular: RRR, no murmur, no edema Gastrointestinal (Abdomen): Inspection/Auscultation: abdomen normal to inspection; abdomen not distended Musculoskeletal: no cyanosis or clubbing, extremities motor strength 5/5 Skin: no rashes, warm and dry Neurologic: moves all extremities and awake Psychiatric: Orientation: alert, oriented to person and cooperative Discharge Data Allergies Allergy/AdvReac Type Severity Reaction Status Date / Time capsaicin Allergy Intermediate HIVES Verified 02/12/20 13:54 diclofenac Allergy Intermediate HIVES Verified 02/12/20 13:54 Diclopak Allergy Intermediate HIVES Verified 02/11/16 00:31 Penicillins Allergy Unknown HIVES/RASH Verified 02/12/20 13:54 Amoxicillin CAPS Allergy Unknown Uncoded 02/12/20 13:54 Clinoril Allergy Unknown Uncoded 02/12/20 13:54 Erythromycin Derivatives Allergy Unknown Uncoded 02/12/20 13:54 metoprolol Allergy Unknown Uncoded 02/12/20 13:54 Voltaren Allergy Unknown Uncoded 02/12/20 13:54 Consultations 02/12/20 13:55 ED Decision to Admit Stat 02/12/20 13:58 ED Decision to Admit Stat 02/12/20 17:28 Consult Cardiology Routine Consult Case Management - Discharge Planning Routine Procedures Performed Operation Date: 02/14/20 07:30 Actual Procedures p Pacer with A/V Leads (Dual) - Ian Kolb MD Ordered Studies 02/14/20 07:05 CL Cath Imgs for PACS use only Routine Hospital Course (1) Heart palpitations: Has a long history of palpitations and has been on nadolol for many years. At one point upon review of records, she was on digoxin as well. Has not followed with cardiology in several years. Presents today with palpitations and found to have bradycardia with heart rates in the 30s to 40s. - Due to palpitations, she needs to be on beta-thalia per cardiology. But due to bradycardia, she may need a pacemaker. SP pacemaker. will followup with cardio within next month. (2) Sinus bradycardia: With bradycardia in the 30s and 40s here which is sinus -Admit to [facility] with telemetry -Cardiology consult, Dr. Benson, discussed with him over the phone -EKG reviewed showing sinus bradycardia, exam reveals S3 -Checking 2D echo -Holding nadolol, will await cardiology recs regarding dc of medication/lowering dose vs needs for pacemaker insertion if persists to have junctional rhythm -Denies lightheadedness, dizziness, weakness -- will ask PT/OT to see for use of cane at baseline. -check TSH -Checking Lyme Titre, anaplasmosis, Ehrlichia -> Lyme negative. (3) Anxiety: Stable Continue home lorazepam as needed although would recommend against this in the elderly (4) DVT prophylaxis: DVT ppx: - teds, scds CODE: DNR/DNI Total Time Total Time Spent Total Time Spent (In Minutes): 32 Total Time Includes: Examination of the Patient, Discharge Planning and Medication Reconciliation Discharge Plan Discharge Items Patient Disposition: Home - Self-Care Reason For Visit: BRADYCARDIA Discharge Diagnosis: bradycardia Activity: Resume your previous activity Non-emergency contact: Primary Care Provider Call non-emergency contact if: you have any medication questions Follow-up/Referrals: Eric Noe [Primary Care Provider] - 02/21/20 2:10 pm (Please follow up with Dr. Noe on Wednesday02/21/2020 at 2:10 pm. Please arrive to the office 15 minutes early for your appointment. If you are unable to keep this appointment, please call the office to res veronica at [phone].) Diet: Heart Healthy Addtl Attending Provider Instructions: refrain from lifting left arm above the shoulder behind the neck for 6 weeks. She should keep this Steri-Strips intact and the dry until follow-up in clinic next week. Pending Studies at Discharge: No Stand-Alone Forms: My [place], Smoking Cessation Medications and DC Order Prescriptions: Continued nadolol 40 mg tablet 40 mg PO QAM RF: 0 ascorbate calcium (vitamin C) 500 mg tablet 500 mg PO QAM RF: 0 multivitamin Capsule 1 cap PO QAM RF: 0 lorazepam [Ativan] 1 mg Tablet 0.5 mg PO DAILY PRN (Reason: Anxiety) RF: 0 estradiol 0.01 % (0.1 mg/gram) cream 4 gm PV [id number] RF: 0 Discharge Orders: Discharge Order (Routine); Ordered 02/15/20 Ordered By: Clem Aragon/Other Patient Handouts: Pacemakers, Living with a Pacemaker, Discharge Instructions for ... Admission Data Admit Date/Time: 02/12/20 15:02 Attending Provider: Clem Awan Admit Provider: Gela Amos Primary Care Provider: Eric Noe Other Providers: Tico Hernandez ; Gela Amos ; Ata Benson Other Interventions: Discharge Summary Assessment (RN) Last Done: 02/15/20 12:35 Coding Level of Care Code D/C Day Management >30 mins Diagnoses Heart palpitations R00.2 Sinus bradycardia R00.1 Anxiety F41.9 DVT prophylaxis Z29.9
== END 2020-02-15 13:11 | disposition home or self-care (01) | DRG 244 ==
LOC: ED 12:13 → 2N 15:02 → SUATTDRO 15:02 → 2N 17:58 → 2S 02-14 08:21